=== PATIENT | male | born 1945 | race Caucasian/White ===

== ENCOUNTER → 2016-08-27 | Outpatient (CLI) | payer MEDICARE, BC ==
[~2016-08-27] MED LIST: COUMADIN10 MG PO; COUMADIN7.5 MG PO; COZAAR 50MG50 MG/TAB PO; CYCLOBENZAPRINE10 M1 PO; ED NORCO 56 UDTAB/BO PO; HCTZ 25MG25 MG PO; KETOROLAC TROME10 MG PO; VOLTAREN GEL1% TP; ZOCOR20 M1 PO
== END ==
LOC: LAB 05:58
DX: Z51.81 Encounter for therapeutic drug level monitoring (principal); Z79.01 Long term (current) use of anticoagulants; I82.409 Acute embolism and thrombosis of unspecified deep veins of unspecified lower extremity

== ENCOUNTER → 2016-09-27 | Outpatient (CLI) | payer MEDICARE, BC | LOC: LAB 06:00 | DX: I82.409 Acute embolism and thrombosis of unspecified deep veins of unspecified lower extremity (principal); E11.9 Type 2 diabetes mellitus without complications ==

== ENCOUNTER → 2016-10-26 | Outpatient (CLI) | payer MEDICARE, BC | LOC: LAB 06:07 | DX: Z51.81 Encounter for therapeutic drug level monitoring (principal); Z79.01 Long term (current) use of anticoagulants; I82.409 Acute embolism and thrombosis of unspecified deep veins of unspecified lower extremity ==

== ENCOUNTER → 2016-11-25 | Outpatient (CLI) | payer MEDICARE, BC | LOC: LAB 06:06 | DX: Z51.81 Encounter for therapeutic drug level monitoring (principal); Z79.01 Long term (current) use of anticoagulants; I82.409 Acute embolism and thrombosis of unspecified deep veins of unspecified lower extremity ==

== ENCOUNTER → 2016-12-27 | Outpatient (CLI) | payer MEDICARE, BC ==
[2015-08-21 22:55] VITALS: BP 165/87
== END ==
LOC: LAB 06:01
DX: Z51.81 Encounter for therapeutic drug level monitoring (principal); Z79.01 Long term (current) use of anticoagulants; I82.409 Acute embolism and thrombosis of unspecified deep veins of unspecified lower extremity

== ENCOUNTER → 2017-01-26 | Outpatient (CLI) | payer MEDICARE, BC ==
[2015-08-21 22:55] VITALS: BP 165/87
== END ==
LOC: LAB 05:54
DX: Z51.81 Encounter for therapeutic drug level monitoring (principal); Z79.01 Long term (current) use of anticoagulants; I82.409 Acute embolism and thrombosis of unspecified deep veins of unspecified lower extremity

== ENCOUNTER → 2017-02-15 | Outpatient (CLI) | payer MEDICARE, BC ==
[2015-08-21 22:55] VITALS: BP 165/87
== END ==
LOC: LAB 06:04
DX: Z51.81 Encounter for therapeutic drug level monitoring (principal); Z79.01 Long term (current) use of anticoagulants; I82.409 Acute embolism and thrombosis of unspecified deep veins of unspecified lower extremity

== ENCOUNTER → 2017-03-17 | Outpatient (CLI) | payer MEDICARE, BC ==
[2015-08-21 22:55] VITALS: BP 165/87
== END ==
LOC: LAB 06:09
DX: I82.409 Acute embolism and thrombosis of unspecified deep veins of unspecified lower extremity (principal)

== ENCOUNTER → 2017-04-19 | Outpatient (CLI) | payer MEDICARE, BC ==
[2015-08-21 22:55] VITALS: BP 165/87
== END ==
LOC: LAB 06:35
DX: I82.409 Acute embolism and thrombosis of unspecified deep veins of unspecified lower extremity (principal)

== ENCOUNTER → 2017-05-19 | Outpatient (CLI) | payer MEDICARE, BC ==
[2015-08-21 22:55] VITALS: BP 165/87
== END ==
LOC: LAB 07:05
DX: I82.409 Acute embolism and thrombosis of unspecified deep veins of unspecified lower extremity (principal)

== ENCOUNTER → 2017-06-17 | Outpatient (CLI) | payer MEDICARE, BC ==
[2015-08-21 22:55] VITALS: BP 165/87
[2017-06-17 07:02] LABS: PROTHROMBIN TIME 20.8 SECONDS (9.0-12.0)
== END ==
LOC: LAB 06:06
PROVIDERS: Nurse Practitioner Family
DX: I82.409 Acute embolism and thrombosis of unspecified deep veins of unspecified lower extremity (principal)

== ENCOUNTER → 2017-07-19 | Outpatient (CLI) | payer MEDICARE, BC ==
[2015-08-21 22:55] VITALS: BP 165/87
[2017-07-19 06:55] LABS: PROTHROMBIN TIME 20.9 SECONDS (9.0-12.0)
== END ==
LOC: LAB 05:59
PROVIDERS: Nurse Practitioner Family
DX: I82.409 Acute embolism and thrombosis of unspecified deep veins of unspecified lower extremity (principal)

== ENCOUNTER → 2017-08-18 | Outpatient (CLI) | payer MEDICARE, BC ==
[2015-08-21 22:55] VITALS: BP 165/87
[2017-08-18 06:37] LABS: PROTHROMBIN TIME 22.5 SECONDS (9.0-12.0)
== END ==
LOC: LAB 05:58
PROVIDERS: Nurse Practitioner Family
DX: I82.409 Acute embolism and thrombosis of unspecified deep veins of unspecified lower extremity (principal)

== ENCOUNTER → 2017-09-19 | Outpatient (CLI) | payer MEDICARE, BC ==
[2015-08-21 22:55] VITALS: BP 165/87
[2017-09-19 06:54] LABS: PROTHROMBIN TIME 17.7 SECONDS (9.0-12.0)
== END ==
LOC: LAB 06:07
PROVIDERS: Nurse Practitioner Family
DX: I82.409 Acute embolism and thrombosis of unspecified deep veins of unspecified lower extremity (principal)

== ENCOUNTER → 2017-10-10 | Outpatient (CLI) | payer MEDICARE, BC ==
[2015-08-21 22:55] VITALS: BP 165/87
[2017-10-10 07:02] LABS: PROTHROMBIN TIME 19.4 SECONDS (9.0-12.0)
== END ==
LOC: LAB 06:24
PROVIDERS: Nurse Practitioner Family
DX: I82.409 Acute embolism and thrombosis of unspecified deep veins of unspecified lower extremity (principal)

== ENCOUNTER → 2017-11-07 | Outpatient (CLI) | payer MEDICARE, BC ==
[2015-08-21 22:55] VITALS: BP 165/87
[2017-11-07 07:14] LABS: PROTHROMBIN TIME 25.1 SECONDS (9.0-12.0)
== END ==
LOC: LAB 05:57
PROVIDERS: Nurse Practitioner Family
DX: I82.409 Acute embolism and thrombosis of unspecified deep veins of unspecified lower extremity (principal)

== ENCOUNTER → 2017-12-12 | Outpatient (CLI) | payer MEDICARE, BC ==
[2015-08-21 22:55] VITALS: BP 165/87
[2017-12-12 06:53] LABS: PROTHROMBIN TIME 28.4 SECONDS (9.0-12.0)
== END ==
LOC: LAB 06:03
PROVIDERS: Nurse Practitioner Family
DX: I82.409 Acute embolism and thrombosis of unspecified deep veins of unspecified lower extremity (principal); Z88.8 Allergy status to other drugs, medicaments and biological substances

== ENCOUNTER → 2017-12-19 | Outpatient (CLI) | payer MEDICARE, BC ==
[2015-08-21 22:55] VITALS: BP 165/87
== END ==
LOC: VAS 15:04
DX: Z00.00 Encounter for general adult medical examination without abnormal findings (principal); I35.0 Nonrheumatic aortic (valve) stenosis; I34.8 Other nonrheumatic mitral valve disorders

== ENCOUNTER → 2018-01-19 | Outpatient (CLI) | payer MEDICARE, BC ==
[2015-08-21 22:55] VITALS: BP 165/87
[2018-01-19 06:30] LABS: BASO # 0.1 (0.02-0.10); EOS # 0.2 (0.04-0.40); EOS % 3.8 % (0.0-4.0); HEMATOCRIT 43.9 % (42.0-52.0); LYMPH# 1.5 (1.50-4.00); MEAN CELL VOLUME 92 fl (78-100); MEAN CORPUSCULAR HEMOGLOBIN 31 pg (27-31); MEAN CORPUSCULAR HGB CONC 34 g/dL (33-37); MEAN PLATELET VOLUME 9.3 fl (7.4-10.4); MONO # 0.5 (0.20-0.80); NEU # 3.4 (1.40-6.50); PLATELET COUNT 254 K/mm3 (130-400); RED BLOOD COUNT 4.77 M/mm3 (4.20-5.60); RED CELL DISTRIBUTION WIDTH 13.9 % (11.5-14.5); WHITE BLOOD COUNT 5.6 K/mm3 (4.8-10.8)
[2018-01-19 06:38] LABS: ALBUMIN 4.2 g/dL (3.5-5.0); BUN/CREATININE RATIO 25.9 (6.0-26.0); CALCIUM 9.1 mg/dL (8.4-10.2); POTASSIUM 3.8 mmol/L (3.6-5.0); TOTAL BILIRUBIN 0.7 mg/dL (0.2-1.3); TOTAL PROTEIN 7.8 g/dL (6.3-8.2)
[2018-01-19 06:42] LABS: PROTHROMBIN TIME 30.1 SECONDS (9.0-12.0)
== END ==
LOC: LAB 05:51
PROVIDERS: Nurse Practitioner Family
DX: Z00.00 Encounter for general adult medical examination without abnormal findings (principal); Z12.5 Encounter for screening for malignant neoplasm of prostate; E11.9 Type 2 diabetes mellitus without complications; E78.2 Mixed hyperlipidemia; I82.409 Acute embolism and thrombosis of unspecified deep veins of unspecified lower extremity

== ENCOUNTER → 2018-02-16 | Outpatient (CLI) | payer MEDICARE, BC ==
[2015-08-21 22:55] VITALS: BP 165/87
== END ==
LOC: LAB 06:06
PROVIDERS: Nurse Practitioner Family
DX: I82.409 Acute embolism and thrombosis of unspecified deep veins of unspecified lower extremity (principal)

== ENCOUNTER → 2018-03-20 | Outpatient (CLI) | payer MEDICARE, BC ==
[2015-08-21 22:55] VITALS: BP 165/87
[2018-03-20 07:09] LABS: PROTHROMBIN TIME 21.3 SECONDS (9.0-12.0)
== END ==
LOC: LAB 06:13
PROVIDERS: Nurse Practitioner Family
DX: I82.409 Acute embolism and thrombosis of unspecified deep veins of unspecified lower extremity (principal)

== ENCOUNTER 2019-07-15 07:30 | Emergency (ER) | payer MEDICARE, BC ==
[~2019-07-15 07:30] MED LIST changes: +COUMADIN 5MG5 MG/TAB PO; +COUMADIN 77.5 MG/TAB PO; -COUMADIN10 MG PO; -COUMADIN7.5 MG PO
[2019-07-15 08:49] LABS: HEMOGLOBIN 11.4 g/dL (13.5-18.0); MEAN CELL VOLUME 91 fl (78-100); MEAN CORPUSCULAR HEMOGLOBIN 30 pg (27-31); MEAN CORPUSCULAR HGB CONC 33 g/dL (33-37); MEAN PLATELET VOLUME 8.4 fl (7.4-10.4); PLATELET COUNT 359 K/mm3 (130-400); RED BLOOD COUNT 3.84 M/mm3 (4.20-5.60); RED CELL DISTRIBUTION WIDTH 13.8 % (11.5-14.5)
[2019-07-15 09:01] LABS: BAND 1 % (0-10); LYMPHOCYTE 13 % (20-51); MONOCYTE 3 % (3-10); NEUTROPHILS 83 % (42-75)
[2019-07-15 09:05] LABS: PROTHROMBIN TIME 32.9 SECONDS (9.0-12.0)
[2019-07-15] MEDS ORDERED: GLUCOPHAGE PO (09:30)
[2019-07-15] MEDS ORDERED: SIMVASTATIN40 M1 PO (09:30)
[2019-07-15] MEDS ORDERED: LOSARTAN POTASS1 TA2 PO (09:31)
[2019-07-15] MEDS ORDERED: NORCO 325 MG-51 TA1 PO (10:00)
[2019-07-15] MEDS ORDERED: AMOXICILLIN 50500 MG PO (10:00)
[2019-07-15 10:36] VITALS: BP 136/85
== END 2019-07-15 10:35 | disposition home or self-care (01) ==
LOC: ED 07:30
PROVIDERS: Family Medicine
DX: M25.512 Pain in left shoulder (principal); K21.9 Gastro-esophageal reflux disease without esophagitis; E11.9 Type 2 diabetes mellitus without complications; I10 Essential (primary) hypertension; Z79.01 Long term (current) use of anticoagulants; Z86.718 Personal history of other venous thrombosis and embolism

== ENCOUNTER 2019-07-27 16:55 | Emergency (ER) | payer MEDICARE, BC ==
[~2019-07-27] VITALS: Ht 170.2 cm; Wt 120.9 kg
[~2019-07-27 16:55] MED LIST changes: +AMOXICILLIN 50500 MG PO; +GLUCOPHAGE PO; +LOSARTAN POTASS1 TA2 PO; +NORCO 325 MG-51 TA1 PO; +SIMVASTATIN40 M1 PO
[2019-07-27 17:51] LABS: HEMOGLOBIN 8.4 g/dL (13.5-18.0); MEAN CELL VOLUME 91 fl (78-100); MEAN CORPUSCULAR HEMOGLOBIN 28 pg (27-31); MEAN CORPUSCULAR HGB CONC 31 g/dL (33-37); MEAN PLATELET VOLUME 9.2 fl (7.4-10.4); PLATELET COUNT 413 K/mm3 (130-400); RED BLOOD COUNT 2.96 M/mm3 (4.20-5.60); RED CELL DISTRIBUTION WIDTH 14.4 % (11.5-14.5); WHITE BLOOD COUNT 11.2 K/mm3 (4.8-10.8)
[2019-07-27 17:53] LABS: ALBUMIN 3.4 g/dL (3.4-4.8); POTASSIUM 4.1 mmol/L (3.5-5.1); SODIUM 137 mmol/L (136-145)
[2019-07-27 17:55] LABS: CALCIUM 8.9 mg/dL (8.3-10.5)
[2019-07-27 17:56] LABS: GLUCOSE 219 mg/dL (75-110); TOTAL PROTEIN 6.8 g/dL (6.2-8.1)
[2019-07-27 17:57] LABS: CARBON DIOXIDE 22 mmol/L (23-31)
[2019-07-27 17:58] LABS: TOTAL BILIRUBIN 0.6 mg/dL (0.2-1.2)
[2019-07-27 17:59] LABS: PROTHROMBIN TIME 26.6 SECONDS (9.0-12.0)
[2019-07-27 18:01] LABS: AST-SGOT 11 U/L (5-34); D-DIMER 0.97 mg/L FEU (0.15-0.50)
[2019-07-27 18:02] LABS: ALT/SGPT 17 U/L (0-55)
[2019-07-27 18:08] LABS: TROPONIN-I < 0.03 ng/mL (<0.030)
[2019-07-27 18:10] LABS: LYMPHOCYTE 14 % (20-51); MONOCYTE 4 % (3-10); NEUTROPHILS 81 % (42-75)
[2019-07-27 18:11] LABS: HYPOCHROMIA 2+
[2019-07-27 19:44] LABS: URINE APPEARANCE HAZY; URINE COLOR YELLOW
[2019-07-27 19:45] LABS: URINE BILIRUBIN NEGATIVE (NEGATIVE); URINE BLOOD 250 ery/uL (NEGATIVE); URINE GLUCOSE NEGATIVE (NEGATIVE); URINE KETONE NEGATIVE (NEGATIVE); URINE LEUKOCYTE ESTERASE TRACE (NEGATIVE); URINE NITRATE NEGATIVE (NEGATIVE); URINE PROTEIN(semi-quant) 1+ mg/dL (NEGATIVE); URINE UROBILINOGEN NORMAL (NORMAL)
[2019-07-27 19:46] LABS: URINE MUCUS PRESENT (NOT PRESENT)
[2019-07-27 20:40] VITALS: BP 121/72
== END 2019-07-27 20:40 | disposition home or self-care (01) ==
LOC: ED 16:55
PROVIDERS: Family Medicine
DX: J96.91 Respiratory failure, unspecified with hypoxia (principal); J18.9 Pneumonia, unspecified organism; D64.9 Anemia, unspecified; I35.0 Nonrheumatic aortic (valve) stenosis; N19 Unspecified kidney failure; E11.9 Type 2 diabetes mellitus without complications; I10 Essential (primary) hypertension; Z79.01 Long term (current) use of anticoagulants; Z79.84 Long term (current) use of oral hypoglycemic drugs; Z86.718 Personal history of other venous thrombosis and embolism
CPT/HCPCS: A4216; J0456; J0696; J7050

== ENCOUNTER → 2020-02-18 | Outpatient (CLI) | payer MEDICARE, BC | LOC: LAB 16:15 | DX: Z01.812 Encounter for preprocedural laboratory examination (principal); R05 Cough; R50.9 Fever, unspecified; Z20.828 Contact with and (suspected) exposure to other viral communicable diseases ==

== ENCOUNTER 2020-08-14 08:30 | Outpatient (RCR) | payer MEDICARE, BC | END 2020-08-25 | disposition home or self-care (01) | LOC: CARDREHAB | DX: Z48.812 Encounter for surgical aftercare following surgery on the circulatory system (principal); Z95.2 Presence of prosthetic heart valve ==

== ENCOUNTER 2020-09-08 09:30 | Outpatient (RCR) | payer MEDICARE, BC ==
[~2020-09-08 09:30] MED LIST changes: -COUMADIN 5MG5 MG/TAB PO; -COUMADIN 77.5 MG/TAB PO; +WARFARIN SOD5 MG PO; +WARFARIN SODIU7.5 MG PO
== END 2020-12-07 | disposition home or self-care (01) ==
LOC: CARDREHAB
DX: Z48.812 Encounter for surgical aftercare following surgery on the circulatory system (principal); Z95.2 Presence of prosthetic heart valve

== ENCOUNTER 2021-02-18 09:23 | Outpatient (RCR) | payer MEDICARE, BC | END 2021-04-03 10:30 | disposition home or self-care (01) | LOC: OT 09:23 | DX: R29.898 Other symptoms and signs involving the musculoskeletal system (principal) ==

== ENCOUNTER 2021-04-29 08:51 | Emergency (ER) | payer MEDICARE, BC ==
[2021-04-29] MEDS ORDERED: KLOR-CON 1010 MEQ (09:15)
[2021-04-29] MEDS ORDERED: LASIX20 M1 (09:16)
[2021-04-29] MEDS ORDERED: ZESTRIL5 M1 PO (09:16)
[2021-04-29] MEDS ORDERED: ASPIRIN E.C. 8181 MG PO (09:16)
[2021-04-29 09:32] LABS: BASO # 0.05 (0.02-0.10); EOS # 0.31 (0.04-0.40); EOS % 6.2 % (0.0-4.0); HEMATOCRIT 31.6 % (42.0-52.0); HEMOGLOBIN 10.2 g/dL (13.5-18.0); LYMPH# 1.15 (1.50-4.00); MEAN CELL VOLUME 94 fl (78-100); MEAN CORPUSCULAR HEMOGLOBIN 30 pg (27-31); MEAN CORPUSCULAR HGB CONC 32 g/dL (33-37); MEAN PLATELET VOLUME 10.1 fl (7.4-10.4); MONO # 0.63 (0.20-0.80); NEU # 2.85 (1.40-6.50); PLATELET COUNT 246 K/mm3 (130-400); RED BLOOD COUNT 3.36 M/mm3 (4.20-5.60); RED CELL DISTRIBUTION WIDTH 13.3 % (11.5-14.5)
[2021-04-29 09:44] LABS: POTASSIUM 4.1 mmol/L (3.5-5.1)
[2021-04-29 09:45] LABS: CALCIUM 9.6 mg/dL (8.3-10.5)
[2021-04-29 09:46] LABS: TOTAL PROTEIN 6.7 g/dL (6.2-8.1)
[2021-04-29 09:48] LABS: TOTAL BILIRUBIN 0.4 mg/dL (0.2-1.2)
[2021-04-29 10:03] LABS: PROTHROMBIN TIME 25.7 SECONDS (9.0-12.0)
[2021-04-29 10:41] LABS: ERYTHROCYTE SEDIMENTATION RATE 28 mm/hr (0-20)
[2021-04-29 11:28] VITALS: BP 141/72
== END 2021-04-29 12:29 | disposition short-term general hospital (02) ==
LOC: ED 08:51
PROVIDERS: Physician Assistant
DX: S01.81XA Laceration without foreign body of other part of head, initial encounter (principal); K62.5 Hemorrhage of anus and rectum; E11.22 Type 2 diabetes mellitus with diabetic chronic kidney disease; N18.9 Chronic kidney disease, unspecified; R55 Syncope and collapse; Z79.01 Long term (current) use of anticoagulants; Z95.4 Presence of other heart-valve replacement; Z20.822 Contact with and (suspected) exposure to COVID-19; X58.XXXA Exposure to other specified factors, initial encounter
CPT/HCPCS: J7030; L0172

== ENCOUNTER → 2022-04-23 | Outpatient (CLI) | payer MEDICARE ==
[~2022-04-23] MED LIST changes: +ASPIRIN E.C. 8181 MG PO; +KLOR-CON 1010 MEQ; +LASIX20 M1; +ZESTRIL5 M1 PO
== END ==
LOC: RAD 10:05
DX: M47.816 Spondylosis without myelopathy or radiculopathy, lumbar region (principal)